=== PATIENT | male | born 1940 | race Caucasian/White ===

== ENCOUNTER 2023-12-05 04:28 | Emergency (ER) | payer MEDICARE, SELFPAY ==
[2023-12-05 04:32] VITALS: BP 159/101
--- NOTE | 2023-12-05 04:35 | ED.GENMED ---
History of Present Illness
General
Chief Complaint: Head Injury
Source: patient and group home
Exam Limitations: dementia
Time Seen by Provider: 12/05/23 04:29
History of Present Illness
History of Present Illness:
This patient is an 83-year-old male with a history of dementia, who typically stays up all night. The med tech who is present at his facility, Cody, who I spoke to, reports seeing the patient trying to transfer from his wheelchair to a dining
chair. He got his foot caught as he was trying to transfer and he tripped over the wheel of the wheelchair. He landed on his bottom, and his head struck the wall. There was no loss of consciousness. This event happened at approximately 3 AM.
History is obviously very limited from patient but he has not been reporting any new symptoms and does not appear to be uncomfortable or in pain. Of note, patient has a longstanding psychiatric history, and Cody states that patient seems to be
slightly more agitated the last few days.
Past History
Past History
ED Past Medical History: Psychiatric
Social History
Drug: None
Living: group home
Employment: Not employed
Phy Exam
Physical Exam
Physical Exam:
GENERAL: Alert , in no apparent distress
EYE: pupils equal and reactive, no photophobia
NECK: Supple, no significant adenopathy, no midline tenderness.
ENT: o/p clr, mmm, no cat, no raccoon, no signs of head or facial injury noted on exam.
CARDIAC: Regular rate and rhythm with occasional skipped beats.
LUNGS: Clear breath sounds bilaterally, no acute respiratory distress, no wheezes/rales/rhonchi
ABDOMEN: Soft, without focal tenderness, no r/g
NEUROLOGICAL: Awake but oriented only to person, moves all extremities equally, no facial droop, speech clear, uncooperative with formal neurological exam
SKIN: Warm and dry, skin intact.
MUSCULOSKELETAL: 2+ bilateral lower extremity edema, well perfused.
PSYCH: Normal and appropriate interaction.
Course
Orders/Labs/Results
Orders:
Orders
12/05/23 04:35
CT Cervical Spine W/o Iv Contr Urgent
Comment:
Reason For Exam: fall
CT Head W/o Iv Contrast Stat
Comment:
Reason For Exam: fall
12/05/23 04:55
UA Reflex to Culture [Urinalysis Reflex To Culture] Stat
Date Specimen was Collected: 12/05/23
Time Specimen was Collected: 04:52
Vital Signs
Initial and Last Documented VS:
Initial Vital Signs
Temp Pulse BP Pulse Ox
97.7 F 120 159/101 97
12/05/23 04:32 12/05/23 04:32 12/05/23 04:32 12/05/23 04:32
Last Documented Vital Signs
Temp Pulse BP Pulse Ox
97.7 F 100 146/94 96
12/05/23 06:19 12/05/23 06:19 12/05/23 06:19 12/05/23 06:19
*Critical Care Note
Total Time (30-74mins, 75-104mins- exclusive of procedures): Not Applicable
Update Note
Update Note:
Patient presents to the Emergency Department with ___recent fall
Number and Complexity of Problems Addressed at the Encounter
� Chronic conditions affecting care:
� Acute Exacerbation and/or Progression of Chronic Illness:
� Differential Diagnosis includes: But not limited to closed head injury, intracranial bleed such as subdural, concussion, etc.
Amount and/or Complexity of Data to be Reviewed and Analyzed
� I performed an independent evaluation of and my interpretation is:
EKG:
CT:VISION fax head anad neck nad, chronic microvasc dz, global parenchymal volume loss
Xrays:
Laboratory Studies:u/a nl
Other:
� Review of other/old records reveals:
� Clinical information was obtained by an independent historian: Cody, the [employer] tech at [facility] where patient lives
� Prescriptions/Medications Considered but not given:
� Further testing considered but not performed:
Risk of Complications and/or Morbidity or Mortality of Patient Management
� Social determinants of health affecting care:
� Discussion with other providers (PCP, Hospitalists, Consultants, etc):
� Escalation of care including admission/observation vs risk of discharge considered:Pt watching t,v, did try to get out of bed but was redireccted and now resting comfortably. Will d/c with close f/u
ED Attending Note
-
Portions of this chart may have been created with voice recognition software.� Occasional wrong word or��sound alike� substitutions may have occurred due to the inherent limitations of voice recognition software.
Discharge Plan
Departure
Patient Disposition: Home (Routine Discharge)
Date of Disposition: 12/05/23
Time of Disposition: 06:04
Patient with high blood pressure during this ER visit?: Yes
Condition: Good
Discharge Problem:
Fall
Instructions: Minor Head Injury (DC), BLOOD PRESSURE
Referrals:
Angie Frias MD [Family Provider] - As needed
Activity Restrictions/Additional Instructions:
IF [facility]TE[facility] DEVELOPS INCREASING CONFUSION, LETHARGY, VOMITING, NECK PAIN, CHEST PAIN, TROUBLE BREATHING, OR OTHER WORRISOME SIGNS, GO TO THE ER IMMEDIATELY!
Interventions
Interventions:
*Risk Screen - Suicide Last Done: 12/05/23 04:32
*General Assessment Last Done: 12/05/23 04:32
*Neglect/Abuse Screening Last Done: 12/05/23 04:32
ED- Fall Risk Assessment Last Done: 12/05/23 04:35
*ED COVID-19 Vaccine History Last Done: 12/05/23 04:35
*Nursing Disposition Last Done: 12/05/23 06:19
ED- Neurological Assessment Last Done: 12/05/23 04:35
ED-Skin Assessment Last Done: 12/05/23 04:35
Discharge Date and Time
Discharge Date/Time: 12/05/23 06:21
[2023-12-05 05:06] LABS: Urine Albumin Negative (Neg - Trace); Urine Bilirubin Negative (Negative); Urine Character Clear (Clear); Urine Color Yellow; Urine Glucose Negative (Negative); Urine Ketone Negative (Negative); Urine Leukocyte Negative (Negative); Urine Nitrite Negative (Negative); Urine Occult Blood Negative (Negative); Urine Specific Gravity 1.005 (<1.030); Urine Urobilinogen Negative (Neg - 1+)
[2023-12-05 06:19] VITALS: BP 146/94
== END 2023-12-05 06:21 | disposition home or self-care (01) ==
LOC: EMR 04:28
PROVIDERS: EMERGENCY PHYSICIAN Emergency Medicine; FAMILY PHYSICIAN Internal Medicine
DX: S09.90XA Unspecified injury of head, initial encounter (principal); W18.09XA Striking against other object with subsequent fall, initial encounter; Y92.129 Unspecified place in nursing home as the place of occurrence of the external cause; R03.0 Elevated blood-pressure reading, without diagnosis of hypertension; R60.0 Localized edema; F03.90 Unspecified dementia, unspecified severity, without behavioral disturbance, psychotic disturbance, mood disturbance, and anxiety
CPT/HCPCS: 99284; 70450; 72125; 81003

== ENCOUNTER 2023-12-28 19:18 | Emergency (ER) | payer MEDICARE, SELFPAY ==
[2023-12-28 19:22] VITALS: BP 157/88
--- NOTE | 2023-12-28 20:19 | ED.GENMED ---
History of Present Illness
General
Chief Complaint: Skin Problem
Source: family, ambulance crew and jail
Exam Limitations: dementia
Time Seen by Provider: 12/28/23 19:33
Nursing documentation reviewed up to this point in time: agreed with
Travel History
Have you had any contact with someone who has COVID-19?: Unable to Answer
Do you have any symptoms of coronavirus? Fever > 100 degrees, chills, cough, shortness of breath, sore throat, loss of taste or smell, muscle aches, or headache?: Unable to Answer
History of Present Illness
History of Present Illness:
Patient is an 83-year-old male from [place] who presents for evaluation. EMS reports the patient was taking a shower became agitated and swung at staff. Patient sustained a fall hitting the showerhead. Patient sustained laceration to left face
lateral eyebrow area. No LOC . no behavior change as per daughter who is at bedside. Daughter reports patient does have a history of this type of behavior in the past. Patient is not on blood thinners. No vomiting.
Past History
Past History
ED Past Medical History: Psychiatric
Social History
Drug: None
Living: jail
Employment: Not employed
Review of Systems
Review of Systems
Allergies reviewed?: Yes
Unable to obtain full review of systems at this time due to: dementia
Other source history: family
All Other Systems: ROS reviewed and negative except as documented in HPI and ROS
Constitutional: Reports no symptoms
Respiratory: Reports no symptoms
Cardiac: Reports no symptoms
ABD/GI: Denies vomiting
Musculoskeletal: Reports no symptoms
Skin: Reports other (laceration to left lateral head )
Neurological: Reports other (hit left side of head no mental status changes )
Psychiatric: Reports no symptoms
Phy Exam
General Physical Exam
General Presentation: no apparent distress
General age: appears stated age
General Skin: warm and dry
General Habitus: elderly
General Mental: confused
Eye Exam
Eye Exam: PERRL, EOMI and other (+ Small amount of ecchymosis to left lateral upper eyelid; laceration approximate 1 cm full-thickness just lateral to left orbit ,no orbital step offs, crepitus )
Eye Exam General: PERRL: bilateral and EOM intact: bilateral
Pupil Exam: Bilateral: round and reactive
Neurological Exam
Neurological Exam: alert
Musculoskeletal Exam
Musculoskeletal Exam: full ROM
Skin Exam
Skin Exam: normal color and warm/dry
Psychiatric Exam
Psychiatric Exam: normal mood/affect
Course
Orders/Labs/Results
Orders:
Orders
12/28/23 20:18
CT Head W/o Iv Contrast Urgent
Comment:
Reason For Exam: trauma
CT Orbits W/o Iv Contrast Urgent
Comment:
Reason For Exam: trauma
Vital Signs
Initial and Last Documented VS:
Initial Vital Signs
Temp Pulse Resp BP Pulse Ox
97.8 F 102 18 157/88 97
12/28/23 19:22 12/28/23 19:22 12/28/23 19:22 12/28/23 19:22 12/28/23 19:22
Last Documented Vital Signs
Temp Pulse Resp BP Pulse Ox
98 F 84 16 144/68 99
12/28/23 21:10 12/28/23 21:10 12/28/23 21:10 12/28/23 21:10 12/28/23 21:10
Procedures
Laceration Closure
Left Face:
Size of Wound in cm: 1
Description of Wound Edges: sharp
Preparation: cleaned with saline
Revision/Debridement: routine- no revision
Type of Closure: Dermabond-skin glue
MDM/Problems Addressed
Differential Diagnosis Includes:
Not limited to contusion, head injury, laceration, fracture, intracranial injury
MDM/Problems Addressed:
Patient is 81-year-old male with dementia became agitated at staff at jail staff protected themselves and patient had fallen hitting his left head/face into the shower. Patient does have a laceration as documented which was repaired as
documented. Patient is awake alert he is on blood thinners. He is at baseline mental status as per daughter. Will check CT head and orbital bones and plan for discharge home. Patient is awake alert and calm here in the ER.
2203: CT head and orbits unremarkable will plan to d/c back to [facility]
Chronic conditions affecting care:
Alzheimer
*Radiology
Radiology exam reviewed: radiology read reviewed
*Pulse Oximetry
Patient hypoxic: no
*Critical Care Note
Total Time (30-74mins, 75-104mins- exclusive of procedures): Not Applicable
ED Attending Note
-
Portions of this chart may have been created with voice recognition software.� Occasional wrong word or��sound alike� substitutions may have occurred due to the inherent limitations of voice recognition software.
Discharge Plan
Departure
Patient Disposition: Home (Routine Discharge)
Date of Disposition: 12/28/23
Time of Disposition: 22:05
Patient with high blood pressure during this ER visit?: Yes
Condition: Fair
Covid-19: Not Applicable
Discharge Problem:
Head injury, Laceration
Instructions: Laceration Repair With Glue (DC), Head Injury in Adults (DC), BLOOD PRESSURE
Referrals:
Angie Frias MD [Family Provider] -
Activity Restrictions/Additional Instructions:
Patient had a CAT scan done of head and facial bones which were negative. Laceration was repaired with Dermabond skin glue. This will flake off on its own within 5 to 7 days. No antibiotic ointment or lotions to the area. Follow-up with family
doctor as needed in the next several days return if any worsening of symptoms.
Interventions
Interventions:
*Risk Screen - Suicide Last Done: 12/28/23 19:22
*General Assessment Last Done: 12/28/23 19:22
*Neglect/Abuse Screening Last Done: 12/28/23 19:22
ED-Skin Assessment Last Done: 12/28/23 19:28
[2023-12-28 21:10] VITALS: BP 144/68
--- NOTE | 2023-12-28 22:16 | EDRN ---
Attempting to set up transportation back to pts facility.
== END 2023-12-28 22:49 | disposition home or self-care (01) ==
LOC: EMR 19:18
PROVIDERS: EMERGENCY PHYSICIAN Emergency Medicine; FAMILY PHYSICIAN Internal Medicine
DX: S01.112A Laceration without foreign body of left eyelid and periocular area, initial encounter (principal); S09.90XA Unspecified injury of head, initial encounter; W01.198A Fall on same level from slipping, tripping and stumbling with subsequent striking against other object, initial encounter; F02.811 Dementia in other diseases classified elsewhere, unspecified severity, with agitation; G30.9 Alzheimer's disease, unspecified; I10 Essential (primary) hypertension
CPT/HCPCS: 99284; 12011; 70450; 70480

== ENCOUNTER 2024-01-25 20:35 | Emergency (ER) | payer MEDICARE, SELFPAY ==
[2024-01-25 20:43] VITALS: BMI 22.7
[2024-01-25 20:55] VITALS: BP 155/109
[2024-01-25 21:00] VITALS: BP 134/109
[2024-01-25 21:12] LABS: % Basophils 0.2 % (0-2); % Immature Granulocytes 0.5 % (0-0.5); % Lymphocytes 6.7 % (20.5-51.1); % Monocytes 8.5 % (1.7-9.3); % Neutrophils 84.1 % (42.2-75.2); ALT (SGPT) 29 U/L (0-50); AST (SGOT) 72 U/L (17-59); Absolute Immature Granulocytes 0.1 10^3/uL (0-0.05); Absolute Lymphocytes 0.9 10^3/uL (1.2-3.4); Absolute Monocytes 1.1 10^3/uL (0.1-0.6); Absolute Neutrophils 10.8 10^3/uL (1.4-6.5); Alkaline Phosphatase 108 U/L (38-126); Blood Urea Nitrogen 41 mg/dl (9-20); Calcium 10.2 mg/dl (8.4-10.2); Carbon Dioxide 29 mmol/L (22-30); Chloride 108 mmol/L (98-107); Estimated Creatinine Clearance 68 ml/min; Glucose 131 mg/dl (70-99); Hematocrit 47.1 % (39.0-52.0); Hemoglobin 15.5 g/dL (13.0-18.0); Mean Corp Hgb Conc. 32.9 g/dL (33.0-37.0); Mean Corpuscular Hgb 29.8 pg (27.0-31.0); Mean Corpuscular Volume 90.4 fL (80.0-94.0); Mean Platelet Volume 10.2 fL (7.4-10.4); Nucleated Red Blood Cells % 0 % (-); Platelet Count 177 10^3/uL (130-400); Potassium 3.7 mmol/L (3.5-5.1); Red Blood Cell Count 5.21 10^6/uL (4.70-6.10); Red Cell Dist. Width 13.2 % (11.5-14.5); Sodium 147 mmol/L (135-145); Total Bilirubin 0.8 mg/dl (0.2-1.3); White Blood Cell Count 12.9 10^3/uL (4.8-10.8); eGFR > 60.00
[2024-01-25] MEDS: NSS 1000 IV (21:20)
--- NOTE | 2024-01-25 21:22 | ED.GENMED ---
History of Present Illness
General
Chief Complaint: Change in Mental Status
Source: patient and assisted records
Exam Limitations: dementia
Time Seen by Provider: 01/25/24 20:56
Nursing documentation reviewed up to this point in time: agreed with
Travel History
Have you had any contact with someone who has COVID-19?: Unable to Answer
Do you have any symptoms of coronavirus? Fever > 100 degrees, chills, cough, shortness of breath, sore throat, loss of taste or smell, muscle aches, or headache?: Unable to Answer
History of Present Illness
History of Present Illness:
83-year-old male with dementia from his unit with decreased p.o. intake for 48 to 72 hours not eating or drinking here's tachycardic dry mucous membranes rectal temp 99 1 unable to provide any meaningful history
Past History
Past History
ED Past Medical History: Psychiatric (dementiaDementia)
Social History
Tobacco: Non-smoker
Alcohol: None
Drug: None
Living: assisted
Employment: Not employed
Family History
Family History: Unable to obtain
Review of Systems
Review of Systems
Unable to obtain full review of systems at this time due to: dementia
Other source history: transfer record
All Other Systems: Not applicable
Phy Exam
Physical Exam
Physical Exam:
Physical Exam
General: no apparent distress, not acutely ill
Neck: supple. no meningeal signs. normal psoterior pharynx
Heart: s1/s2 regular rate and rhythm, no murmur. equal radial pulses.
Lungs: no acute respiratory distress. clear bilaterally
Abdomen: normal bowel sounds. not tender. no CVAT
Neuro: alert and oriented. no focal neurological deficits
Skin: no rash
Psychiatric: well kept. interactive and cooperative
Extremities: no edema. no calf tenderness. negative homans. good distal pulses
Course
Orders/Labs/Results
Orders:
Orders
01/25/24 20:40
Electrocardiogram (*1) Urgent
Reason for Study: Other
Other Reason for Exam: Possible Sepsis
Cardiac Monitoring- Treatment ONCE
IV Insert/Care/Rem.- Treatment PRN
Straight cath- Treatment ONCE
Urinalysis Reflex To Culture Urgent
Date Specimen was Collected: 01/25/24
Time Specimen was Collected: 20:41
O2 Therapy [RESP] Urgent
Titrate/Wean O2 to maintain O2 sat greater than (%): 93
Special Instructions: TO MAINTAIN CONTINUOUS O2 SATS > OR = 93%
Pulse Ox/cont/shift [RESP] Urgent
Quantity: 1
Special Instructions: CONTINUOUS
01/25/24 20:41
EKG- Treatment ONCE
01/25/24 20:51
Complete Blood Count/With Diff Urgent
Comprehensive Metabolic Panel Urgent
Lactic Acid Q4H
Comment: ON ICE, CANCEL 2ND ORDER IF FIRST LACTIC ACID LEVEL <2
Blood Culture Q30M
JUSTIN Source: Blood/Venous
Specimen Description:
Comment: FROM 2 SEPARATE SITES
01/25/24 21:14
0.9% Sodium Chloride 1000 ml [Nss] 1,000 ml IV BOLUS
01/25/24 21:15
Blood Culture Q30M
JUSTIN Source: Blood/Venous
Specimen Description:
Comment: FROM 2 SEPARATE SITES
01/26/24 00:45
Lactic Acid Q4H
Comment: ON ICE, CANCEL 2ND ORDER IF FIRST LACTIC ACID LEVEL <2
Abnormal Lab Results
01/25/24
20:51
WBC 12.9 H 10^3/uL
(4.8-10.8)
MCHC 32.9 L g/dL
(33.0-37.0)
Abs Immat Gran (auto) 0.1 H 10^3/uL
(0-0.05)
Absolute Neuts (auto) 10.8 H 10^3/uL
(1.4-6.5)
Absolute Lymphs (auto) 0.9 L 10^3/uL
(1.2-3.4)
Absolute Monos (auto) 1.1 H 10^3/uL
(0.1-0.6)
Neutrophils % 84.1 H %
(42.2-75.2)
Lymphocytes % 6.7 L %
(20.5-51.1)
Sodium 147 H mmol/L
(135-145)
Chloride 108 H mmol/L
(98-107)
BUN 41 H mg/dl
(9-20)
Glucose 131 H mg/dl
(70-99)
AST 72 H U/L
(17-59)
01/25/24 20:51
01/25/24 20:51
Vital Signs
Initial and Last Documented VS:
Initial Vital Signs
Pulse Resp Pulse Ox
152 19 91
01/25/24 20:42 01/25/24 20:42 01/25/24 20:42
Last Documented Vital Signs
Temp Pulse Resp BP Pulse Ox
99.1 F 106 19 134/109 93
01/25/24 20:44 01/25/24 21:15 01/25/24 21:15 01/25/24 21:00 01/25/24 21:15
MDM/Problems Addressed
Differential Diagnosis Includes:
Progressive dementia dehydration occult infection arrhythmia
MDM/Problems Addressed:
Not eating or drinking
Chronic conditions affecting care:
Dementia
Chronic conditions affecting care: Neurological disorder
Acute Exacerbation and/or Progression of Chronic Illness: Neurological disorder
*Pulse Oximetry
Patient hypoxic: no
*EKG
Interpreted by ED Provider?: Yes
Interpretation: abnormal
Comparison EKG: no comparison EKG present
Heart Rate: 136
Rate: tachycardiac
Rhythm: sinus
Ischemia: non-specific ST changes
*Rustic Fence [employer] Interpretation
Rate: tachycardiac
Interpretation: abnormal
Heart Rate: 118
Rhythm: sinus
*Critical Care Note
Total Time (30-74mins, 75-104mins- exclusive of procedures): Not Applicable
Update Note
Update Note:
Patient with elevated BUN to creatinine ratio sodium levels clinically looks dry consistent with his history of not eating or drinking for few days, may be in and out of a tachyarrhythmia, will treat with saline for now keep on a cardiac sonographer
Will require admission hospitalist notified
ED Attending Note
-
Portions of this chart may have been created with voice recognition software.� Occasional wrong word or��sound alike� substitutions may have occurred due to the inherent limitations of voice recognition software.
Discharge Plan
Departure
Patient Disposition: Admit
Date of Disposition: 01/25/24
Time of Disposition: 21:37
Admit to: Telemetry
Presentation/result/management discussed w/ accepting MD/DO: Hospitalist
Patient with high blood pressure during this ER visit?: No
Condition: Fair
Discharge Problem:
Dehydration
Referrals:
Angie Frias MD [Family Provider] -
Interventions
Interventions:
*Risk Screen - Suicide Last Done: 01/25/24 21:29
*General Assessment Last Done: 01/25/24 20:44
*Neglect/Abuse Screening Last Done: 01/25/24 21:29
ED- Fall Risk Assessment Last Done: 01/25/24 21:27
*ED COVID-19 Vaccine History Last Done: 01/25/24 20:44
ED- Pulmonary Assessment Last Done: 01/25/24 21:27
ED- Neurological Assessment Last Done: 01/25/24 21:22
ED- Cardiac Assessment Last Done: 01/25/24 21:27
Discharge Date and Time
Print Language: NEPALI
--- NOTE | 2024-01-25 21:46 | HPS.HSE ---
Family Physician
-
Family Physician: Angie Frias
Medical History
Past Medical History
Past Medical History: Reports Other
Additional Past Medical History:
Past medical history archive reviewed and obtained from the archive as patient unable to provide much information
Dementia
BPH
Anxiety and mood disorder osteoarthritis
Allergies / Home Medications
Allergies reflects when Allergies were last updated in [facility].
Home Medications with original date entered in [facility]
Physical Exam
Vital Signs
Vital Signs
Temp Pulse Resp BP Pulse Ox
99.1 F 106 19 134/109 93
01/25/24 20:44 01/25/24 21:15 01/25/24 21:15 01/25/24 21:00 01/25/24 21:15
Laboratory Results
-
01/25/24 20:51
01/25/24 20:51
Laboratory Results
Lactic Acid 2.0 mmol/L (0.7-2.0) 01/25/24 20:51
Total Bilirubin 0.8 mg/dl (0.2-1.3) 01/25/24 20:51
AST 72 U/L (17-59) H 01/25/24 20:51
ALT 29 U/L (0-50) 01/25/24 20:51
Alkaline Phosphatase 108 U/L (38-126) 01/25/24 20:51
EKG showed sinus tachycardia rate around 140s, HI 150s, QTc 382 left axis deviation with nonspecific ST-T wave abnormalities.
Impression/Plan
-
IMPRESSION:
PLAN:
--- NOTE | 2024-01-25 22:00 | W.PN.UPDATE ---
Update Note
Progress Note Update
Patient seen and evaluated by me in detail basically verbalized were not related to the condition, sent from a dementia unit for poor oral intake and dehydration.
Looks dry and dehydrated, does not follows command.
ER given some fluids and workups reviewed in detail. Reviewing his document from a [facility] specially his POLST forms indicated is DNR/DNI and comfort measure and does not want any hydration fluid tube feeding.
Discussed with the ER physician of the document specially the POLST form reviewed again which we have on agreement on respecting this patient's wish ER physician will contact his longterm and [facility] and they will [facility] back to
the [facility].
Discussed with the ER physician and the nurse
== END 2024-01-25 23:45 ==
LOC: EMR 20:35
PROVIDERS: EMERGENCY PHYSICIAN Emergency Medicine; FAMILY PHYSICIAN Internal Medicine
DX: E86.0 Dehydration (principal); R00.0 Tachycardia, unspecified; F03.90 Unspecified dementia, unspecified severity, without behavioral disturbance, psychotic disturbance, mood disturbance, and anxiety
CPT/HCPCS: 99284; 96360; 80053; 83605; 85025; 87040; 93005